=== PATIENT | female | born 1985 | race Two or more races ===

== ENCOUNTER 2018-10-11 17:58 | Emergency (ER) | payer BC, MEDICAID ==
[~2018-10-11] VITALS: Ht 170.2 cm; Wt 72.6 kg
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
--- NOTE | 2018-10-11 19:04 | NUR ---
seen evaluated by er , report endorsed to nurse Jones.
--- NOTE | 2018-10-11 19:10 | NUR ---
Xray at bedside.
--- NOTE | 2018-10-11 19:47 | NUR ---
Patient discharged to home in stable conditon. Written and verbal after care instructions given. Patient verbalizes understanding of instructions. Patient ambulated out of ER with steady gait, no acute signs of distress, VSS, all belongings taken.
[2018-10-11 19:48] VITALS: BP 141/86
== END 2018-10-11 19:49 | disposition home or self-care (01) ==
LOC: EDBD 18:01 → ER 18:01
DX: S13.4XXA Sprain of ligaments of cervical spine, initial encounter (principal); S59.901A Unspecified injury of right elbow, initial encounter; S39.92XA Unspecified injury of lower back, initial encounter; Z76.0 Encounter for issue of repeat prescription; I10 Essential (primary) hypertension; Z88.0 Allergy status to penicillin; Z88.8 Allergy status to other drugs, medicaments and biological substances; V49.9XXA Car occupant (driver) (passenger) injured in unspecified traffic accident, initial encounter; Y93.89 Activity, other specified; Y92.89 Other specified places as the place of occurrence of the external cause; Y99.8 Other external cause status
CPT/HCPCS: 73080; A4663